=== PATIENT | male | born 1960 | race Caucasian/White ===

== ENCOUNTER → 2017-01-11 | Outpatient (REF) | payer BC ==
[~2017-01-11] MED LIST: /AUGM875TA; CIPR500T19; FLAG500T; HYDR25TA6; PRIL40CA; VICO5TAB
--- NOTE | 2017-01-11 07:42 | PFTRPT ---
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 The forced vital capacity is reduced. The FEV1 is in proportion. The obstructive index is, therefore, normal. FLOW VOLUME LOOP: The expiratory limb of the flow volume loop does suggest flow rate limitation. LUNG VOLUMES: The total lung capacity is normal. The residual volume suggests air trapping. DIFFUSION CAPACITY: The diffusion capacity is normal. HEMOGLOBIN: No hemoglobin is available for correction. AIRWAY MECHANICS: Airways resistance and conductance are normal. IMPRESSION: Suspect some degree of air trapping. Please correlate clinically. MTDD
== END ==
LOC: M CARPUL 06:49 → EDSTATUS 14:21
PROVIDERS: ATTEND Nurse Practitioner Adult Health
DX: R05 Cough (principal)

== ENCOUNTER → 2017-07-01 | Outpatient (REF) | payer BC ==
[2017-07-05 00:08] LABS: Lyme Disease IgG/IgM Antibodie <0.91 ISR (0.00-0.90); Lyme Disease IgM Ab Quantitati <0.80 index (0.00-0.79)
== END ==
LOC: M LAB REF 16:15
PROVIDERS: ATTEND Nurse Practitioner Family
DX: S70.261A Insect bite (nonvenomous), right hip, initial encounter (principal); R53.83 Other fatigue; X58.XXXA Exposure to other specified factors, initial encounter; Y92.9 Unspecified place or not applicable; Y93.9 Activity, unspecified

== ENCOUNTER → 2018-06-28 | Outpatient (REF) | payer BC ==
[2018-06-28 17:05] LABS: TESTOSTERONE 317 NG/DL (241-827)
== END ==
LOC: M LAB REF 16:08
DX: F52.21 Male erectile disorder (principal)
CPT/HCPCS: 84403

== ENCOUNTER → 2019-01-03 | Outpatient (REF) ==
--- NOTE | 2019-01-03 07:10 | PFTRPT ---
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 Forced vital capacity reduced. FEV1 in proportion. Obstructive index is, therefore, normal. Flow Volume Loop: Expiratory limb of the flow volume loop is normal. Lung Volumes: Total lung capacity normal. Residual volume is in proportion. Diffusing Capacity: Diffusing capacity, although reduced, is appropriate for alveolar volume. Hemoglobin: No hemoglobin available for correction. Airway Mechanics: Airway resistance and conductance are normal. IMPRESSION: Nonspecific flow rate limitation with diffusing capacity impairment. Please correlate clinically. MTDD
== END ==
LOC: M EMP 06:47 → EDSTATUS 07:00
PROVIDERS: ATTEND Nurse Practitioner Adult Health
DX: Z02.1 Encounter for pre-employment examination (principal)

== ENCOUNTER 2019-03-23 15:21 | Emergency (ER) | payer BC ==
[~2019-03-23] VITALS: Ht 182.9 cm; Wt 131.3 kg
[2019-03-23] MEDS ORDERED: MELO15TA28 (15:30)
[2019-03-23 16:17] LABS: BASO # 0.1 10^3/uL (0.0-0.2); BASO % 0.6 % (0.0-1.0); EOS # 0.1 10^3/uL (0.0-0.50); EOS % 1.1 % (0.0-3.0); HEMATOCRIT 45.6 % (42.0-52.0); HEMOGLOBIN 15.7 g/dl (13.5-17.5); LYMPH # 1.6 10^3/uL (1.5-4.5); LYMPH % 18.1 % (24.0-44.0); MEAN CORPUSCULAR HEMOGLOBIN 30.2 pg (27.0-33.0); MEAN CORPUSCULAR HGB CONC 34.4 g/dl (32.0-36.5); MEAN CORPUSCULAR VOLUME 87.7 fl (80.0-96.0); MONO % 10.8 % (0.0-5.0); NEUTROPHILS # 6.2 10^3/uL (1.8-7.7); NEUTROPHILS % 69.1 % (36.0-66.0); PLATELET COUNT, AUTOMATED 287 10^3/uL (150-450)
[2019-03-23 16:38] LABS: ALBUMIN 3.9 GM/DL (3.2-5.2); ALT/SGPT 28 U/L (12-78); BILIRUBIN,DIRECT < 0.1 MG/DL (0.0-0.2); BILIRUBIN,TOTAL 0.5 MG/DL (0.2-1.0); LIPASE 111 U/L (73-393); TOTAL PROTEIN 7.4 GM/DL (6.4-8.2)
[2019-03-23] MEDS ORDERED: ISOVUE-370 76% 100ML VIAL (Q9967) As Ordered ONE (16:41)
--- NOTE | 2019-03-23 18:03 | REP ---
CT ABDOMEN AND PELVIS WITH IV CONTRAST: TECHNIQUE: Axial contrast enhanced images from the lung bases to the pubic symphysis using 100 mL Isovue 370 intravenous contrast material with multiplanar reformations. Visualized lung bases demonstrate mild bibasilar parenchymal fibrotic changes with right sided pleural thickening. Liver and gallbladder appear unremarkable. I do not see evidence of biliary dilatation. The spleen, adrenals and pancreas demonstrate no mass. There does appear to be some degree of thickening of the left adrenal gland. The kidneys are unremarkable with no hydronephrosis. There is mild atherosclerotic calcification of the abdominal aorta without aneurysm. There is no adenopathy. There is no free air or free fluid. No bowel wall thickening is seen. There is sigmoid diverticulosis. Suture line is seen in the sigmoid colon. There is no evidence of acute diverticulitis. No pelvic mass is seen. Urinary bladder is mildly distended and grossly unremarkable. There is no evidence of appendicitis. There are degenerative changes of the spine. IMPRESSION: No acute abnormalities. Mild sigmoid diverticulosis. No acute diverticulitis. No free air or free fluid. No appendicitis. Electronically Signed by Khris Tinajero MD 03/25/2019 11:12 P
[2019-03-23 18:52] VITALS: BP 164/86
== END 2019-03-23 18:54 | disposition home or self-care (01) ==
LOC: M ED 15:21
DX: K57.90 Diverticulosis of intestine, part unspecified, without perforation or abscess without bleeding (principal); R14.0 Abdominal distension (gaseous); I25.10 Atherosclerotic heart disease of native coronary artery without angina pectoris; K21.9 Gastro-esophageal reflux disease without esophagitis; Z79.899 Other long term (current) drug therapy; Z88.0 Allergy status to penicillin; Z88.5 Allergy status to narcotic agent; Z88.8 Allergy status to other drugs, medicaments and biological substances
CPT/HCPCS: 74177; 80047; 80076; 81001; 83690; 85025; 93041; 99284; Q9967

== ENCOUNTER 2019-04-24 12:46 | Day surgery (SDC) | payer BC ==
[~2019-04-24] VITALS: Ht 182.9 cm; Wt 126.1 kg
[2019-04-24] MEDS: NS 1,000 ML IV ONE (06:00)
[~2019-04-24 12:46] MED LIST changes: +CVS1CAP2 PO; +MELO15TA28; +OMEP-221 PO
[2019-04-24] MEDS ORDERED: LIDOCAINE 2% INJ 100 MG/5 ML SDV (FOR ANES.) As Ordered ONE (13:49)
[2019-04-24] MEDS ORDERED: PROPOFOL 200 MG/20 ML VIAL As Ordered ONE (13:49)
--- NOTE | 2019-04-24 15:25 | ROOR ---
Patient Name: Gabo Vang Procedure Date: 04/24/2019 2:41 PM Date of : 1960 Age: 58 Room: [facility] Gender: Male Note Status: Finalized Procedure: Colonoscopy Indications: Abdominal pain in the left lower quadrant, Constipation Providers: Jimenez Novoa MD Referring MD: Darek Martel MD Requesting Provider: Medicines: Monitored Anesthesia Care Complications: No immediate complications. Procedure: Pre-Anesthesia Assessment: - Prior to the procedure, a History and Physical was performed, and patient medications and allergies were reviewed. The patient is competent. The risks and benefits of the procedure and the sedation options and risks were discussed with the patient. All questions were answered and informed consent was obtained. Patient identification and proposed procedure were verified by the physician, the nurse and the anesthesiologist in the procedure room. Mental Status Examination: alert and oriented. CV Examination: regular rate and rhythm. Prophylactic Antibiotics: The patient does not require prophylactic antibiotics. Prior Anticoagulants: The patient has taken no previous anticoagulant or antiplatelet agents. ASA Grade Assessment: III - A patient with severe systemic disease. After reviewing the risks and benefits, the patient was deemed in satisfactory condition to undergo the procedure. The anesthesia plan was to use monitored anesthesia care (MAC). Immediately prior to administration of medications, the patient was re-assessed for adequacy to receive sedatives. The heart rate, respiratory rate, oxygen saturations, blood pressure, adequacy of pulmonary ventilation, and response to care were monitored throughout the procedure. The physical status of the patient was re-assessed after the procedure. The was introduced through the anus and advanced to the cecum, identified by appendiceal orifice and ileocecal valve. The colonoscopy was performed without difficulty. The patient tolerated the procedure well. The quality of the bowel preparation was good. Findings: The perianal and digital rectal examinations were normal. Two sessile polyps were found in the proximal ascending colon. The polyps were 4 to 7 mm in size. These polyps were removed with a hot snare. Resection and retrieval were complete. Multiple medium-mouthed diverticula were found in the sigmoid colon and distal descending colon. There was evidence of a prior end-to-end colo-rectal anastomosis at 20 cm proximal to the anus. This was characterized by healthy appearing mucosa. Impression: - Two 4 to 7 mm polyps in the proximal ascending colon, removed with a hot snare. Resected and retrieved. - Diverticulosis in the sigmoid colon and in the distal descending colon. - End-to-end colo-rectal anastomosis, characterized by healthy appearing mucosa. Recommendation: - Discharge patient to home. - Resume previous diet. - Continue present medications. - Await pathology results. - If the pathology report reveals adenomatous tissue, then repeat the colonoscopy for surveillance in 5 years. Jimenez Novoa MD Jimenez Novoa MD 04/24/2019 3:25:00 PM Electronically signed by Jimenez Novoa MD Number of Addenda: 0 Note Initiated On: 04/24/2019 2:41 PM Estimated Blood Loss: Estimated blood loss: none.
--- NOTE | 2019-04-24 15:31 | ROOR ---
Patient Name: Gabo Vang Procedure Date: 04/24/2019 2:37 PM Date of : 1960 Age: 58 Room: [facility] Gender: Male Note Status: Finalized Procedure: Upper GI endoscopy Indications: Epigastric abdominal pain, Suspected esophageal reflux Providers: Jimenez Novoa MD Referring MD: Darek Martel MD Requesting Provider: Medicines: Monitored Anesthesia Care Complications: No immediate complications. Procedure: Pre-Anesthesia Assessment: - Prior to the procedure, a History and Physical was performed, and patient medications and allergies were reviewed. The patient is competent. The risks and benefits of the procedure and the sedation options and risks were discussed with the patient. All questions were answered and informed consent was obtained. Patient identification and proposed procedure were verified by the physician, the nurse and the anesthesiologist in the procedure room. Mental Status Examination: alert and oriented. CV Examination: regular rate and rhythm. Prophylactic Antibiotics: The patient does not require prophylactic antibiotics. Prior Anticoagulants: The patient has taken no previous anticoagulant or antiplatelet agents. ASA Grade Assessment: III - A patient with severe systemic disease. After reviewing the risks and benefits, the patient was deemed in satisfactory condition to undergo the procedure. The anesthesia plan was to use monitored anesthesia care (MAC). Immediately prior to administration of medications, the patient was re-assessed for adequacy to receive sedatives. The heart rate, respiratory rate, oxygen saturations, blood pressure, adequacy of pulmonary ventilation, and response to care were monitored throughout the procedure. The physical status of the patient was re-assessed after the procedure. The Endoscope was introduced through the mouth, and advanced to the second part of duodenum. The upper GI endoscopy was accomplished without difficulty. The patient tolerated the procedure well. Findings: The examined esophagus was normal. The entire examined stomach was normal. The first portion of the duodenum and second portion of the duodenum were normal. Biopsies were taken with a cold forceps for Helicobacter pylori testing. Estimated blood loss was minimal. Impression: - Normal esophagus. - Normal stomach. - Normal first portion of the duodenum and second portion of the duodenum. Biopsied. Recommendation: - Discharge patient to home. - Resume previous diet. - Continue present medications. - Await pathology results. Jimenez Novoa MD Jimenez Novoa MD 04/24/2019 3:31:06 PM Electronically signed by Jimenez Novoa MD Number of Addenda: 0 Note Initiated On: 04/24/2019 2:37 PM Estimated Blood Loss: Estimated blood loss was minimal.
[2019-04-24 15:48] VITALS: BP 178/97
== END 2019-04-24 15:57 | disposition home or self-care (01) ==
LOC: M OPP 12:46
PROVIDERS: ATTEND Surgery
DX: D12.2 Benign neoplasm of ascending colon (principal); Z98.0 Intestinal bypass and anastomosis status; K57.30 Diverticulosis of large intestine without perforation or abscess without bleeding; R10.32 Left lower quadrant pain; K59.00 Constipation, unspecified; R10.13 Epigastric pain; Z79.899 Other long term (current) drug therapy; Z88.0 Allergy status to penicillin; Z88.5 Allergy status to narcotic agent; Z88.8 Allergy status to other drugs, medicaments and biological substances

== ENCOUNTER → 2019-05-08 | Outpatient (CLI) | payer BC ==
--- NOTE | 2019-05-08 08:32 | REP ---
Abdominal right upper quadrant ultrasound for right upper quadrant pain: There is no cholelithiasis. The gallbladder is incompletely distended. The gallbladder wall is thickened measuring up to 4.8 mm, however, this could be artifact from under distension. There is no pericholecystic fluid. There is no intrahepatic or extrahepatic biliary duct dilatation. The common biliary duct measures 4.3 mm in diameter. The hepatic parenchyma is diffusely echogenic, compatible with hepato steatosis/hepatocellular disease. There are no hepatic masses. The visualized portions of the pancreas are unremarkable. The right kidney measures 12.2 x 2.4 x 6.0 cm and is normal size. There is no right renal calculus, hydronephrosis, solid mass or cystic mass. There is no right upper quadrant ascites. Impression: Incomplete gallbladder distension, gallbladder wall is thickened, likely artifact from under distension. No cholelithiasis or biliary duct dilatation. Hepato steatosis. No ascites. Electronically Signed by Khris Kramer MD 05/08/2019 08:25 A
== END ==
LOC: M RAD 06:12
PROVIDERS: ATTEND Surgery
DX: R10.11 Right upper quadrant pain (principal); K76.0 Fatty (change of) liver, not elsewhere classified

== ENCOUNTER → 2019-05-31 | Outpatient (REF) | payer BC ==
[2019-05-31 12:45] LABS: BASO # 0.1 10^3/uL (0.0-0.2); BASO % 0.9 % (0.0-1.0); EOS # 0.2 10^3/uL (0.0-0.5); EOS % 2.3 % (0.0-3.0); HEMATOCRIT 44.6 % (42.0-52.0); LYMPH # 1.6 10^3/uL (1.5-5.0); LYMPH % 23.3 % (24.0-44.0); MEAN CORPUSCULAR HEMOGLOBIN 29.4 pg (27.0-33.0); MEAN CORPUSCULAR HGB CONC 33.6 g/dl (32.0-36.5); MEAN CORPUSCULAR VOLUME 87.5 fl (80.0-96.0); MONO # 0.8 10^3/uL (0.0-0.8); NEUTROPHILS # 4.2 10^3/uL (1.5-8.5); NEUTROPHILS % 62.1 % (36.0-66.0); PLATELET COUNT, AUTOMATED 296 10^3/uL (150-450); WHITE BLOOD COUNT 6.8 10^3/uL (4.0-10.0)
[2019-05-31 13:03] LABS: ERYTHROCYTE SEDIMENTATION RATE 6 mm/hr (0-20)
[2019-05-31 13:10] LABS: ALBUMIN 3.8 GM/DL (3.2-5.2); ALT/SGPT 32 U/L (12-78); BILIRUBIN,TOTAL 0.4 MG/DL (0.2-1.0); BLOOD UREA NITROGEN 11 MG/DL (7-18); C REACTIVE PROTEIN QUANTITATIV 0.52 MG/DL (0.00-0.30); CALCIUM LEVEL 9.5 MG/DL (8.8-10.2); CARBON DIOXIDE LEVEL 28 MEQ/L (21-32); CHLORIDE LEVEL 106 MEQ/L (98-107); CREATININE FOR GFR 0.78 MG/DL (0.70-1.30); GLOMERULAR FILTRATION RATE > 60.0 (>49); GLUCOSE, FASTING 99 MG/DL (70-100); POTASSIUM SERUM 4.1 MEQ/L (3.5-5.1); SODIUM LEVEL 140 MEQ/L (136-145); TOTAL PROTEIN 7.2 GM/DL (6.4-8.2)
[2019-06-02 00:11] LABS: Lyme Disease IgG/IgM Antibodie <0.91 ISR (0.00-0.90); Lyme Disease IgM Ab Quantitati <0.80 index (0.00-0.79)
== END ==
LOC: M LABDRWAD 12:24
PROVIDERS: ATTEND Physician Assistant
DX: R53.83 Other fatigue (principal); R51 Headache; S20.462A Insect bite (nonvenomous) of left back wall of thorax, initial encounter

== ENCOUNTER → 2019-12-12 | Outpatient (REF) ==
--- NOTE | 2019-12-12 17:56 | REP ---
CHEST X-RAY: TWO VIEWS. HISTORY: Employee health. Comparison chest x-ray: December 20, 2013 FINDINGS: The lungs are well inflated and free of infiltrate. Pleural angles are sharp. Heart size is normal. Pulmonary vasculature is not increased. There are mild degenerative changes in the thoracic spine. No significant bony abnormality. IMPRESSION: No active disease. Electronically Signed by Deon Resendiz MD 12/12/2019 07:39 P
== END ==
LOC: M RAD 09:31
PROVIDERS: ATTEND Nurse Practitioner Adult Health
DX: Z02.89 Encounter for other administrative examinations (principal)

== ENCOUNTER → 2019-12-26 | Outpatient (REF) ==
--- NOTE | 2019-12-26 11:25 | PFTRPT ---
Site: [facility], [address] [place] [address], [id number] ID: [id number] Name: ARIES PALACIO Visit Date: 12/26/2019 Second ID: [id number] Referring Doctor: Wilma Ibrahim Reviewing Doctor: Vicente Ch MD Grain Sampler: Aure Gomez Age: 59 : 1960 Sex: Male Race: Height: 72.00 Inches Weight: 300.00 Lbs BSA: 2.53 Order IDs: [id number] Requested Test(s): <RESP-PFT.DLCO> Diagnosis: EMPLOYEE HE[employer] test meet the ATS standards for acceptability and repeatability. Review Status: Not Reviewed Pre-Bronch Post-Bronch Pred Actual %Pred Actual %Chng SPIROMETRY FVC (L) 5.08 4.61 90 FEV1 (L) 3.83 3.23 84 FEV1/FVC (%) 75 70 93 FEF 25% (L/sec) 8.77 7.22 82 FEF 50% (L/sec) 5.37 3.05 56 FEF 75% (L/sec) 1.70 0.54 31 FEF 25-75% (L/sec) 3.11 1.92 61 FEF Max (L/sec) 9.60 8.82 91 FIVC (L) 4.58 FIF 50% (L/sec) 4.69 6.93 147 FIF Max (L/sec) 7.52 MVV (L/min) 146 163 111 Expiratory Time (sec) 11.10 Back Extrap Vol (L) 0.17 Time To FEFmax (sec) 0.130 LUNG VOLUMES SVC (L) 5.03 4.67 92 IC (L) 3.51 2.07 59 ERV (L) 1.52 2.60 170 TGV (L) 3.89 4.51 116 RV (Pleth) (L) 2.37 1.92 80 TLC (Pleth) (L) 7.40 6.59 88 RV/TLC (Pleth) (%) 33 29 88 DIFFUSION DLCOunc (ml/min/mmHg) 29.03 28.60 98 DLCOcor (ml/min/mmHg) 29.03 27.99 96 DL/VA (ml/min/mmHg/L) 3.92 4.32 110 VA (L) 7.40 6.49 87 BHT (sec) 11.26 IVC (L) 4.36 TLC (SB) (L) 6.64 AIRWAYS RESISTANCE Raw (cmH2O/L/s) 1.45 0.63 43 Gaw (L/s/cmH2O) 1.03 1.58 153 sRaw (cmH2O*s) 4.76 2.98 62 sGaw (1/cmH2O*s) 0.20 0.34 168 BLOOD GASES Hgb (gm/dL) 15.4
== END ==
LOC: M CARPUL 10:51 → EDSTATUS 11:00
PROVIDERS: ATTEND Nurse Practitioner Adult Health
DX: Z00.00 Encounter for general adult medical examination without abnormal findings (principal)

== ENCOUNTER 2020-07-25 01:50 | Emergency (ER) | payer BC ==
[~2020-07-25] VITALS: Ht 182.9 cm; Wt 136.5 kg
[2020-07-25] MEDS ORDERED: LABETALOL 100MG/20ML VIAL IV STA (02:16)
[2020-07-25 02:36] LABS: BASO # 0.1 10^3/uL (0.0-0.2); BASO % 0.7 % (0.0-1.0); EOS # 0.5 10^3/uL (0.0-0.5); EOS % 6.3 % (0.0-3.0); HEMATOCRIT 43.7 % (42.0-52.0); HEMOGLOBIN 14.6 g/dl (13.5-17.5); LYMPH # 1.7 10^3/uL (1.5-5.0); LYMPH % 23.7 % (24.0-44.0); MEAN CORPUSCULAR HEMOGLOBIN 28.9 pg (27.0-33.0); MEAN CORPUSCULAR HGB CONC 33.4 g/dl (32.0-36.5); MEAN CORPUSCULAR VOLUME 86.4 fl (80.0-96.0); MONO # 0.8 10^3/uL (0.0-0.8); MONO % 10.9 % (0.0-5.0); NEUTROPHILS # 4.1 10^3/uL (1.5-8.5); NEUTROPHILS % 58.1 % (36.0-66.0); PLATELET COUNT, AUTOMATED 251 10^3/uL (150-450); RED BLOOD COUNT 5.06 10^6/uL (4.30-6.10); WHITE BLOOD COUNT 7.1 10^3/uL (4.0-10.0)
[2020-07-25 03:10] LABS: ALBUMIN 3.6 GM/DL (3.2-5.2); ALT/SGPT 25 U/L (12-78); BILIRUBIN,DIRECT 0.1 MG/DL (0.0-0.2); BILIRUBIN,TOTAL 0.4 MG/DL (0.2-1.0); BLOOD UREA NITROGEN 12 MG/DL (7-18); CALCIUM LEVEL 8.7 MG/DL (8.8-10.2); CARBON DIOXIDE LEVEL 26 MEQ/L (21-32); CHLORIDE LEVEL 106 MEQ/L (98-107); CPK CREATINE PHOSPHOKINASE 90 U/L (39-308); CREATININE FOR GFR 0.82 MG/DL (0.70-1.30); GLOMERULAR FILTRATION RATE > 60.0 (>49); GLUCOSE, FASTING 114 MG/DL (70-100); MB/CK RELATIVE INDEX 1.11 (< OR =4); NT-PRO BNP 131 PG/ML (<125); POTASSIUM SERUM 3.7 MEQ/L (3.5-5.1); SODIUM LEVEL 141 MEQ/L (136-145); TOTAL PROTEIN 7.1 GM/DL (6.4-8.2); TROPONIN I < 0.02 NG/ML (< 0.10)
--- NOTE | 2020-07-25 03:13 | REPVR ---
PROCEDURE INFORMATION: Exam: XR Chest, 1 View Exam date and time: 07/25/2020 2:37 AM Age: 59 years old Clinical indication: Chest pain TECHNIQUE: Imaging protocol: XR of the chest Views: 1 view. COMPARISON: CR Chest, 2 view PA, Lat 12/20/2013 7:10 PM FINDINGS: Lungs: Unremarkable. No consolidation. No focal infiltrates. Pleural space: Interval clearing of the right costophrenic sulcus since the prior study. Heart/Mediastinum: The heart and mediastinum are unchanged. Bones/joints: Unremarkable. Soft tissues: There are moderately generous overlying soft tissues. Other findings: Slightly decreased inflation since the prior study. IMPRESSION: Essentially negative chest with decreased inflation since 12/20/2013. There has been interval clearing of the right costophrenic sulcus as well. Electronically signed by: Gilberto Shore On 07/25/2020 03:14:05 AM
[2020-07-25] MEDS ORDERED: LABETALOL 100 MG TAB PO ONE (03:30)
[2020-07-25] MEDS ORDERED: hydrALAZINE 20MG/ML 1ML VIAL (J0360 PER 20MG) IV ONE (03:30)
[2020-07-25] MEDS ORDERED: FUROSEMIDE 40MG/4ML VIAL (J1940) IV ONE (05:45)
[2020-07-25] MEDS ORDERED: VALS1TAB68 PO (06:59)
[2020-07-25] MEDS ORDERED: CHLO125TA PO (06:59)
[2020-07-25] MEDS ORDERED: VALSARTAN 80 MG TAB (DIOVAN) PO ONE (07:00)
[2020-07-25] MEDS ORDERED: CHLORTHALIDONE 12.5MG PER 1/2 TABLET PO ONE (07:00)
[2020-07-25 07:34] VITALS: BP 185/108
[2020-07-25 07:36] VITALS: BP 180/88
--- NOTE | 2020-07-25 07:44 | ECGEPIP ---
[facility] - ED Test Date: 2020-07-25 Pat Name: ARIES PALACIO Department: Room: - Gender: Male Inpatient Services Rn: nobles : 1960 Requested By: MARCOS Correa Order Number: [id number] Reading MD: Lu Mooney Measurements Intervals [place] Rate: 74 P: 27 SC: 189 QRS: 8 QRSD: 71 T: 3 QT: 347 QTc: 386 Interpretive Statements SINUS RHYTHM No prior Electronically Signed on 07-25-2020 7:44:24 EST by Lu Mooney
== END 2020-07-25 07:50 | disposition home or self-care (01) ==
LOC: M ED 01:50
DX: I10 Essential (primary) hypertension (principal); I25.10 Atherosclerotic heart disease of native coronary artery without angina pectoris; K21.9 Gastro-esophageal reflux disease without esophagitis; Z88.6 Allergy status to analgesic agent; Z88.8 Allergy status to other drugs, medicaments and biological substances; Z79.899 Other long term (current) drug therapy
CPT/HCPCS: 36415; 71045; 80048; 80076; 82550; 82553; 83880; 84443; 84484; 85025; 93005; 93041; 94760; 96374; 96375; 99285; J0360; J1940

== ENCOUNTER → 2020-08-28 | Outpatient (CLI) | payer BC ==
[~2020-08-28] MED LIST changes: +CHLO125TA PO; +VALS1TAB68 PO
[2020-08-28 10:38] LABS: BLOOD UREA NITROGEN 15 MG/DL (7-18); CALCIUM LEVEL 9.1 MG/DL (8.8-10.2); CARBON DIOXIDE LEVEL 29 MEQ/L (21-32); CHLORIDE LEVEL 106 MEQ/L (98-107); CREATININE FOR GFR 0.87 MG/DL (0.70-1.30); GLOMERULAR FILTRATION RATE > 60.0 (>49); GLUCOSE, FASTING 108 MG/DL (70-100); MAGNESIUM LEVEL 1.9 MG/DL (1.8-2.4); POTASSIUM SERUM 3.7 MEQ/L (3.5-5.1); SODIUM LEVEL 141 MEQ/L (136-145)
--- NOTE | 2020-08-28 10:48 | REP ---
INDICATION: HTN PT HAVING LABS FIRST COMPARISON: None TECHNIQUE: Real time porter scale ultrasound examination using curved array transducer followed by color Doppler evaluation of the renal vasculature. FINDINGS: The bilateral kidneys are normal in appearance. Right kidney measures 11.2 x 6.7 x 5.8 cm. Left kidney measures 11.9 x 6.8 x 5.6 cm. Bladder is under distended. Color Doppler evaluation is severely limited due to body habitus and interposed bowel gas. The main renal arteries are not identifiable. RIGHT KIDNEY Renal arterial velocity: -- centimeters/second Renal-aortic ratio: -- Intrarenal resistive indices: 0.60-0.70 Intrarenal acceleration times: 0.025-0.031 LEFT KIDNEY Renal arterial velocity: -- centimeters/second Renal-aortic ratio: -- Intrarenal resistive indices: 0.59-0.74 Intrarenal acceleration times: 0.020-0.044 IMPRESSION: 1. Normal appearance of bilateral kidneys. No hydronephrosis.. 2. Relatively limited examination. No obvious indirect evidence for renal arterial stenosis based on intrarenal vascular findings. Consider MRA or CTA for further investigation if necessary. <Electronically signed by Gabriel Hoffmann > 08/28/20 [id number]
[2020-09-06 01:06] LABS: METANEPHRINE PLASMA 49.6 pg/mL (0.0-88.0)
== END ==
LOC: M LAB 08:45
PROVIDERS: ATTEND Internal Medicine Cardiovascular Disease
DX: I10 Essential (primary) hypertension (principal)

== ENCOUNTER → 2020-08-29 | Outpatient (REF) | payer BC ==
[2020-08-30 11:02] LABS: CREATININE, URINE 61.9 MG/DL; MALB URINE SIEMENS < 5.0 MG/L
== END ==
LOC: M LAB REF 23:00
PROVIDERS: ATTEND Internal Medicine Cardiovascular Disease
DX: I10 Essential (primary) hypertension (principal)

== ENCOUNTER → 2020-12-22 | Outpatient (REF) ==
--- NOTE | 2020-12-22 11:45 | PFTRPT ---
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 Forced vital capacity is reduced. FEV1 is in proportion. Obstructive index is therefore normal. Expiratory limit of the flow-volume loop does suggest some nonspecific flow rate limitation. Total lung capacity is normal. Residual volume is in proportion. Diffusing capacity is normal. No hemoglobin available for correction. Airway resistance and conductance are normal. IMPRESSION: Nonspecific flow rate limitation will require clinical correlation. MTDD
== END ==
LOC: EDSTATUS 11:00 → M CARPUL 11:19
PROVIDERS: ATTEND Nurse Practitioner Adult Health
DX: Z20.822 Contact with and (suspected) exposure to COVID-19 (principal)

== ENCOUNTER → 2021-04-17 | Outpatient (CLI) | payer BC ==
[~2021-04-17] MED LIST changes: +ISOVUE-300 61% 50ML VIAL As Ordered ONE; +LIDOCAINE 1% MDV 20ML VIAL As Ordered ONE; +methylPREDNISolone SUSP 40MG/ML 1ML VIAL (DEPO MEDROL) As Ordered ONE
--- NOTE | 2021-04-17 17:01 | REP ---
INDICATION: NAIN OA OF HIP. COMPARISON: None TECHNIQUE: The procedure was performed by WAGNER Hayden, under the direct supervision of Dr. Tinajero. The benefits and risks of the procedure were explained to the patient, and an informed consent was obtained. Directly prior to the start of the procedure, a formal time-out was completed in the procedure room. The left femoral neck joint space was localized using fluoroscopic guidance. The skin was prepped and draped in a sterile fashion. Approximately 5 mL of 1% Lidocaine 10 mg/ml was used as a local anesthetic. Using fluoroscopic guidance, a #22 gauge spinal needle was inserted and advanced into the left femoral neck joint space. Approximately 1 mL of Isovue 300 was injected to verify placement. Seven mL of a solution containing 5 mL 1% lidocaine 10 mg/ml and 2 mL Depo-Medrol 40 milligrams/milliliter was injected into the joint space. The needle was removed and hemostasis was achieved. FINDINGS: The patient tolerated the procedure well and there were no immediate complications. IMPRESSION: 1. Fluoroscopically guided left hip intra-articular pain injection. 0.1 minutes of fluoroscopy time was utilized for this procedure. Some fluoroscopic images are performed with last image hold technology. These images require no additional radiation. <Electronically signed by Denice Cates > 04/17/21 1304 <Electronically signed by Khris Tinajero > 04/17/21 [id number]
== END ==
LOC: M RADPRO 11:51
PROVIDERS: ATTEND Physician Assistant
DX: M16.0 Bilateral primary osteoarthritis of hip (principal)
CPT/HCPCS: 20610; 77002; J1030; Q9967

== ENCOUNTER → 2021-06-09 | Outpatient (CLI) | payer BC ==
--- NOTE | 2021-06-10 17:22 | REP ---
INDICATION: OSTEOARTHRITIS RIGHT HIP. COMPARISON: None TECHNIQUE: The procedure was performed by WAGNER Caldera, under the direct supervision of Dr. Tinajero. The benefits and risks of the procedure were explained to the patient, and an informed consent was obtained. Directly prior to the start of the procedure, a formal time-out was completed in the procedure room. The right hip joint space was localized using fluoroscopic guidance. The skin was prepped and draped in a sterile fashion. Approximately 5 mL of 1% Lidocaine 10 mg/ml was used as a local anesthetic. Using fluoroscopic guidance, a #22 gauge spinal needle was inserted and advanced into the right hip joint space. Approximately 3 mL of Isovue 300 was injected to verify placement. Seven mL of a solution containing 5 mL 1% lidocaine 10 mg/ml and 2 mL Depo-Medrol 40 mg/mL was injected into the joint space. The needle was removed and hemostasis was achieved. FINDINGS: The patient tolerated the procedure well and there were no immediate complications. IMPRESSION: 1. Technically successful right hip arthrogram. 0.1 minutes of fluoroscopy time was utilized for this procedure. Some fluoroscopic images are performed with last image hold technology. These images require no additional radiation. <Electronically signed by January Ferrer > 06/09/21 1531 <Electronically signed by Khris Tinajero > 06/10/21 1325
== END ==
LOC: M RADPRO 14:10
PROVIDERS: ATTEND Physician Assistant
DX: M16.0 Bilateral primary osteoarthritis of hip (principal)
CPT/HCPCS: 20610; 77002; J1030; Q9967

== ENCOUNTER → 2021-08-04 | Outpatient (REF) | payer BC ==
[~2021-08-04] MED LIST changes: -ISOVUE-300 61% 50ML VIAL As Ordered ONE; -LIDOCAINE 1% MDV 20ML VIAL As Ordered ONE; -methylPREDNISolone SUSP 40MG/ML 1ML VIAL (DEPO MEDROL) As Ordered ONE
== END ==
LOC: M LAB REF 11:09
PROVIDERS: ATTEND Family Medicine
DX: R30.0 Dysuria (principal)

== ENCOUNTER → 2021-08-07 | Outpatient (CLI) | payer BC | LOC: M RAD 11:20 | PROVIDERS: ATTEND Physician Assistant Surgical | DX: M16.11 Unilateral primary osteoarthritis, right hip (principal) ==

== ENCOUNTER → 2021-08-28 | Outpatient (CLI) | payer BC ==
[~2021-08-28] MED LIST changes: -OMEP-221 PO; +OMEP40CA5 PO
== END ==
LOC: M RAD 09:43
PROVIDERS: ATTEND Family Medicine
DX: R30.0 Dysuria (principal)

== ENCOUNTER → 2021-12-23 | Outpatient (REF) | LOC: EDSTATUS 09:00 → M CARPUL 10:40 | PROVIDERS: ATTEND Nurse Practitioner Adult Health | DX: Z02.1 Encounter for pre-employment examination (principal) ==

== ENCOUNTER 2022-12-23 09:14 | Day surgery (SDC) | payer BC ==
[~2022-12-23] VITALS: Ht 180.3 cm; Wt 125.6 kg
[~2022-12-23 09:14] MED LIST changes: +AMLO1TAB25 PO; +CARV3.12 PO; +NS 1,000 ML IV ONE; +TAMS1CAP17 PO
[2022-12-23] MEDS ORDERED: LIDOCAINE 2% 100MG/5ML SDV (FOR ANES.) As Ordered ONE (11:21)
[2022-12-23] MEDS ORDERED: propofoL 200 MG/20 ML VIAL As Ordered ONE (11:21)
[2022-12-23 12:01] VITALS: BP 142/80
== END 2022-12-23 12:09 | disposition home or self-care (01) ==
LOC: M OPP 09:14
PROVIDERS: ATTEND Surgery
DX: Z12.11 Encounter for screening for malignant neoplasm of colon (principal); Z86.010 Personal history of colon polyps; Z80.0 Family history of malignant neoplasm of digestive organs; K57.30 Diverticulosis of large intestine without perforation or abscess without bleeding; G47.33 Obstructive sleep apnea (adult) (pediatric); Z99.89 Dependence on other enabling machines and devices; Z79.899 Other long term (current) drug therapy; Z88.5 Allergy status to narcotic agent; Z88.8 Allergy status to other drugs, medicaments and biological substances

== ENCOUNTER → 2023-01-12 | Outpatient (REF) ==
[~2023-01-12] MED LIST changes: -NS 1,000 ML IV ONE
== END ==
LOC: M CARPUL 07:32
PROVIDERS: ATTEND Nurse Practitioner Adult Health
DX: Z02.89 Encounter for other administrative examinations (principal)

== ENCOUNTER → 2023-07-01 | Outpatient (REF) | LOC: M EMP 16:59 | PROVIDERS: ATTEND Family Medicine | DX: Z11.52 Encounter for screening for COVID-19 (principal) ==

== ENCOUNTER → 2024-01-23 | Outpatient (REF) | LOC: M CARPUL 13:15 | PROVIDERS: ATTEND Nurse Practitioner Adult Health | DX: Z02.1 Encounter for pre-employment examination (principal) ==

== ENCOUNTER 2024-12-14 10:25 | Emergency (ER) | payer OTHER, BC ==
[~2024-12-14] VITALS: Ht 180.3 cm; Wt 137.2 kg
[2024-12-14 11:53] LABS: BASO % 0.4 % (0.0-1.0); EOS # 0.2 10^3/uL (0.0-0.5); EOS % 1.7 % (0.0-3.0); HEMATOCRIT 41.9 % (42.0-52.0); HEMOGLOBIN 14.3 g/dl (13.5-17.5); LYMPH # 0.8 10^3/uL (1.5-5.0); LYMPH % 7.5 % (24.0-44.0); MEAN CORPUSCULAR HEMOGLOBIN 29.9 pg (27.0-33.0); MEAN CORPUSCULAR HGB CONC 34.1 g/dl (32.0-36.5); MEAN CORPUSCULAR VOLUME 87.5 fl (80.0-96.0); MONO # 0.9 10^3/uL (0.0-0.8); MONO % 8.6 % (2.0-8.0); NEUTROPHILS # 8.8 10^3/uL (1.5-8.5); NEUTROPHILS % 81.2 % (36.0-66.0); PLATELET COUNT, AUTOMATED 260 10^3/uL (150-450); RED BLOOD COUNT 4.79 10^6/uL (4.30-6.10); WHITE BLOOD COUNT 10.9 10^3/uL (4.0-10.0)
[2024-12-14 12:20] LABS: BLOOD UREA NITROGEN 17 MG/DL (9-23); CALCIUM LEVEL 9.3 MG/DL (8.3-10.6); CARBON DIOXIDE LEVEL 26 MMOL/L (20-31); CHLORIDE LEVEL 103 MMOL/L (98-107); CREATININE FOR GFR 0.69 MG/DL (0.70-1.30); GLOMERULAR FILTRATION RATE > 90.0 (>49); GLUCOSE, FASTING 113 MG/DL (74-106); POTASSIUM SERUM 3.7 MMOL/L (3.5-5.1); SODIUM LEVEL 140 MMOL/L (136-145)
[2024-12-14] MEDS ORDERED: ISOVUE-370 76% 100ML VIAL As Ordered ONE (14:13)
[2024-12-14] MEDS: fentaNYL 100 MCG/2 ML INJECTION IV ONE (14:35)
[2024-12-14] MEDS ORDERED: TRAM50TA2 PO (17:03)
[2024-12-14] MEDS ORDERED: LIDO1ADH93 TOP (17:10)
[2024-12-14 17:19] VITALS: BP 143/66; TEMP 97.4; O2SAT 94
== END 2024-12-14 17:30 | disposition home or self-care (01) ==
LOC: M ED 10:25
DX: S22.31XA Fracture of one rib, right side, initial encounter for closed fracture (principal); M24.812 Other specific joint derangements of left shoulder, not elsewhere classified; M25.712 Osteophyte, left shoulder; V49.40XA Driver injured in collision with unspecified motor vehicles in traffic accident, initial encounter; K21.9 Gastro-esophageal reflux disease without esophagitis; I10 Essential (primary) hypertension; K57.30 Diverticulosis of large intestine without perforation or abscess without bleeding; Z79.899 Other long term (current) drug therapy; Y92.410 Unspecified street and highway as the place of occurrence of the external cause; Y93.89 Activity, other specified; Y99.9 Unspecified external cause status
CPT/HCPCS: 71101; 71275; 73030; 74174; 80047; 80048; 85025; 96374; 99284; J3010; Q9967

== ENCOUNTER → 2025-02-20 | Outpatient (REF) ==
[~2025-02-20] MED LIST changes: +LIDO1ADH93 TOP; +TRAM50TA2 PO
== END ==
LOC: M CARPUL 07:56
PROVIDERS: ATTEND Family Medicine
DX: Z02.89 Encounter for other administrative examinations (principal)

== ENCOUNTER → 2025-02-28 | Outpatient (REF) | payer BC, OTHER ==
[2025-02-28 14:16] LABS: C REACTIVE PROTEIN QUANTITATIV 0.58 MG/DL (<1.0)
[2025-02-28 14:18] LABS: RHEUMATOID FACTOR QUANT < 3.5 IU/ML (<14)
[2025-02-28 14:21] LABS: BASOPHILS 4 % (0-1); EOSINOPHILS 1 % (0-3); LYMPHOCYTES 25 % (16-44); METAMYELOCYTES 2 % (0-0); MONOCYTES 5 % (0-5); NEUTROPHILS 60 % (28-66)
[2025-02-28 14:29] LABS: PLATELET ESTIMATE NORMAL (NORMAL)
== END ==
LOC: M LAB REF 12:15
PROVIDERS: ATTEND Family Medicine
DX: Z11.59 Encounter for screening for other viral diseases (principal); M25.50 Pain in unspecified joint

== ENCOUNTER 2025-05-06 19:25 | Observation (INO) | payer BC, OTHER ==
[~2025-05-06] VITALS: Ht 180.3 cm; Wt 140.8 kg
[2025-05-06] MEDS: IPRATROPIUM 0.5 MG/ALBUTEROL 2.5 MG INH SOL UD 3 ML NEB PRN (20:53)
[2025-05-06 22:09] LABS: BASO # 0.0 10^3/uL (0.0-0.2); BASO % 0.4 % (0.0-1.0); EOS # 0.1 10^3/uL (0.0-0.5); EOS % 0.9 % (0.0-3.0); LYMPH # 0.7 10^3/uL (1.5-5.0); LYMPH % 6.6 % (24.0-44.0); MONO # 0.3 10^3/uL (0.0-0.8); MONO % 3.1 % (2.0-8.0); NEUTROPHILS # 9.2 10^3/uL (1.5-8.5); NEUTROPHILS % 88.5 % (36.0-66.0); PLATELET COUNT, AUTOMATED 260 10^3/uL (150-450)
[2025-05-06 22:35] LABS: ALT/SGPT 30 U/L (7.0-40); AST/SGOT 30 U/L (<34); CALCIUM LEVEL 9.0 MG/DL (8.3-10.6); CARBON DIOXIDE LEVEL 26 MMOL/L (20-31); CHLORIDE LEVEL 106 MMOL/L (98-107); CREATININE FOR GFR 0.75 MG/DL (0.70-1.30); GLOMERULAR FILTRATION RATE > 90.0 (>49); POTASSIUM SERUM 4.0 MMOL/L (3.5-5.1); SODIUM LEVEL 143 MMOL/L (136-145)
[2025-05-07 00:38] VITALS: O2SAT 91
[2025-05-07 01:55] VITALS: BP 185/87
[2025-05-07] MEDS ORDERED: MOM 30 ML SUSPENSION UDC PO PRN (02:20)
[2025-05-07] MEDS ORDERED: ACETAMINOPHEN 325 MG TAB PO PRN (02:20)
[2025-05-07] MEDS ORDERED: MAALOX 30 ML SUSP *UDC PO PRN (02:20)
[2025-05-07] MEDS ORDERED: ALBUTEROL SULFATE 2.5 MG/0.5 ML INH CONCENTRATE NEB SOLN NEB PRN (07:50)
[2025-05-07] MEDS: PANTOPRAZOLE 40MG VIAL IV SCH (08:07)
[2025-05-07] MEDS: DOCUSATE SODIUM 100 MG CAPSULE PO SCH (08:07)
[2025-05-07] MEDS ORDERED: CHLO125TA PO (08:27)
[2025-05-07] MEDS ORDERED: TRAM50TA2 PO (08:27)
[2025-05-07] MEDS ORDERED: VALS1TAB68 PO (08:27)
[2025-05-07] MEDS ORDERED: VENTAER INH ×2 (08:27→11:23)
[2025-05-07] MEDS ORDERED: HOME MED LIST COMPLETE! XX SCH (08:30)
[2025-05-07] MEDS: BUDESONIDE 0.5 MG/2 ML INHALATION SUSPENSION NEB SCH (08:31)
[2025-05-07] MEDS: IPRATROPIUM 0.5 MG/ALBUTEROL 2.5 MG INH SOL UD 3 ML NEB SCH (08:31)
[2025-05-07 08:38] LABS: ALT/SGPT 27 U/L (7.0-40); AST/SGOT 22 U/L (<34); CALCIUM LEVEL 9.1 MG/DL (8.3-10.6); CARBON DIOXIDE LEVEL 26 MMOL/L (20-31); CHLORIDE LEVEL 105 MMOL/L (98-107); CREATININE FOR GFR 0.63 MG/DL (0.70-1.30); GLOMERULAR FILTRATION RATE > 90.0 (>49); POTASSIUM SERUM 3.9 MMOL/L (3.5-5.1); SODIUM LEVEL 141 MMOL/L (136-145)
[2025-05-07] MEDS: amLODIPine 10 MG TAB PO SCH (09:26)
[2025-05-07] MEDS: HEPARIN SOD 5000 UNITS/ML 1 ML VIAL/SYRINGE SC SCH (09:27)
[2025-05-07] MEDS ORDERED: PRED20TA PO (11:23)
[2025-05-07 12:05] VITALS: BP 155/60; TEMP 97.1; O2SAT 95
== END 2025-05-07 12:20 | disposition home or self-care (01) ==
LOC: M ED 19:25 → M ED INP 05-07 02:18 → INTOOBSV 05-07 02:18
PROVIDERS: ADMIT Student in an Organized Health Care Education/Training Program; ATTEND Student in an Organized Health Care Education/Training Program
DX: R09.02 Hypoxemia (principal); J69.8 Pneumonitis due to inhalation of other solids and liquids; J20.9 Acute bronchitis, unspecified; E66.01 Morbid (severe) obesity due to excess calories; G47.33 Obstructive sleep apnea (adult) (pediatric); I10 Essential (primary) hypertension; K21.9 Gastro-esophageal reflux disease without esophagitis; G43.909 Migraine, unspecified, not intractable, without status migrainosus; K57.30 Diverticulosis of large intestine without perforation or abscess without bleeding; Z79.51 Long term (current) use of inhaled steroids; Z79.899 Other long term (current) drug therapy; Z88.5 Allergy status to narcotic agent; Z88.8 Allergy status to other drugs, medicaments and biological substances
CPT/HCPCS: 36415; 71046; 80048; 80053; 80076; 83880; 84145; 85025; 87486; 87581; 87633; 87798; 93005; 94640; 94760; 96372; 96374; 96375; 96376; 99285; J2470; J2919

== ENCOUNTER 2025-05-15 08:05 | Emergency (ER) | payer BC ==
[~2025-05-15] VITALS: Ht 185.4 cm; Wt 139.6 kg
[~2025-05-15 08:05] MED LIST changes: +PRED20TA PO; +VENTAER INH
[2025-05-15 08:34] LABS: VENOUS BASE EXCESS 1.8 (-2.0-2.0); VENOUS HCO3 28.2 MMOL/L (23.0-27.0); VENOUS O2 SATURATION 92.8 % (60.0-80.0); VENOUS PARTIAL PRESSURE CO2 50.8 mmHg (38.0-50.0); VENOUS PARTIAL PRESSURE O2 66.7 mmHg (30.0-50.0); VENOUS PH 7.363 UNITS (7.330-7.430); VENOUS STANDARD HCO3 26.0 MMOL/L; VENOUS TOTAL CO2 29.8 MMOL/L (24.0-28.0)
[2025-05-15 08:41] LABS: BASO # 0.1 10^3/uL (0.0-0.2); BASO % 0.7 % (0.0-1.0); EOS # 0.5 10^3/uL (0.0-0.5); EOS % 4.9 % (0.0-3.0); LYMPH # 0.8 10^3/uL (1.5-5.0); LYMPH % 8.5 % (24.0-44.0); MONO # 0.8 10^3/uL (0.0-0.8); MONO % 8.8 % (2.0-8.0); NEUTROPHILS # 7.0 10^3/uL (1.5-8.5); NEUTROPHILS % 75.9 % (36.0-66.0); PLATELET COUNT, AUTOMATED 243 10^3/uL (150-450)
[2025-05-15 09:14] LABS: ALT/SGPT 22 U/L (7.0-40); AST/SGOT 18 U/L (<34); CALCIUM LEVEL 9.0 MG/DL (8.3-10.6); CARBON DIOXIDE LEVEL 28 MMOL/L (20-31); CHLORIDE LEVEL 101 MMOL/L (98-107); CREATININE FOR GFR 0.81 MG/DL (0.70-1.30); GLOMERULAR FILTRATION RATE > 90.0 (>49); POTASSIUM SERUM 3.9 MMOL/L (3.5-5.1); SODIUM LEVEL 141 MMOL/L (136-145)
[2025-05-15 09:16] LABS: THYROXINE (T4) 5.6 UG/DL (4.5-10.9)
[2025-05-15] MEDS ORDERED: ISOVUE-370 76% 100 ML VIAL As Ordered ONE (09:40)
[2025-05-15] MEDS: IPRATROPIUM 0.5 MG/ALBUTEROL 2.5 MG INH SOL UD 3 ML NEB ONE (09:59)
[2025-05-15] MEDS: ALBUTEROL SULFATE 2.5 MG/0.5 ML INH CONCENTRATE NEB SOLN INH ONE (10:00)
[2025-05-15 10:23] LABS: CK-MB VALUE MASS 1.2 NG/ML (<3.6)
[2025-05-15 10:28] LABS: CPK CREATINE PHOSPHOKINASE 74.0 U/L (46-171)
[2025-05-15 10:30] LABS: CK-MB VALUE MASS 1.2 NG/ML (<3.6); MB/CK RELATIVE INDEX 1.62 (< OR =4)
[2025-05-15 10:57] LABS: CPK CREATINE PHOSPHOKINASE 69 U/L (46-171); MB/CK RELATIVE INDEX 1.73 (< OR =4)
[2025-05-15 13:12] VITALS: O2SAT 91
[2025-05-15] MEDS ORDERED: HOME MED LIST COMPLETE! XX SCH (13:50)
[2025-05-15] MEDS ORDERED: PRED10TA2 PO (15:02)
[2025-05-15 15:36] VITALS: BP 136/69; TEMP 97.9; O2SAT 92
== END 2025-05-15 15:40 | disposition home or self-care (01) ==
LOC: M ED 08:05
DX: J20.9 Acute bronchitis, unspecified (principal); I10 Essential (primary) hypertension; G47.33 Obstructive sleep apnea (adult) (pediatric); F41.1 Generalized anxiety disorder; K21.9 Gastro-esophageal reflux disease without esophagitis; F17.200 Nicotine dependence, unspecified, uncomplicated; F10.10 Alcohol abuse, uncomplicated; Z88.5 Allergy status to narcotic agent; Z88.8 Allergy status to other drugs, medicaments and biological substances; Z79.52 Long term (current) use of systemic steroids; Z79.899 Other long term (current) drug therapy
CPT/HCPCS: 71045; 71275; 80048; 80076; 82550; 82553; 82803; 83880; 84145; 84436; 84443; 84484; 85025; 87040; 87070; 87077; 87205; 87486; 87581; 87633; 87798; 93005; 93041; 94640; 94760; 96374; 99285; J2919; Q9967

== ENCOUNTER 2025-06-05 23:29 | Emergency (ER) | payer BC ==
[~2025-06-05] VITALS: Ht 180.3 cm; Wt 141.5 kg
[~2025-06-05 23:29] MED LIST changes: +PRED10TA2 PO
[2025-06-05 23:31] VITALS: TEMP 97.5
[2025-06-06] MEDS: IPRATROPIUM 0.5 MG/ALBUTEROL 2.5 MG INH SOL UD 3 ML NEB PRN (00:26)
[2025-06-06 00:36] LABS: BASO # 0.1 10^3/uL (0.0-0.2); BASO % 0.9 % (0.0-1.0); EOS # 0.4 10^3/uL (0.0-0.5); EOS % 6.3 % (0.0-3.0); LYMPH # 0.9 10^3/uL (1.5-5.0); LYMPH % 13.2 % (24.0-44.0); MONO # 0.8 10^3/uL (0.0-0.8); MONO % 10.8 % (2.0-8.0); NEUTROPHILS # 4.8 10^3/uL (1.5-8.5); NEUTROPHILS % 68.4 % (36.0-66.0); PLATELET COUNT, AUTOMATED 232 10^3/uL (150-450)
[2025-06-06 00:51] LABS: ALT/SGPT 23 U/L (7.0-40); AST/SGOT 17 U/L (<34); CALCIUM LEVEL 8.6 MG/DL (8.3-10.6); CARBON DIOXIDE LEVEL 26 MMOL/L (20-31); CHLORIDE LEVEL 106 MMOL/L (98-107); CREATININE FOR GFR 0.78 MG/DL (0.70-1.30); GLOMERULAR FILTRATION RATE > 90.0 (>49); POTASSIUM SERUM 3.5 MMOL/L (3.5-5.1); SODIUM LEVEL 140 MMOL/L (136-145)
[2025-06-06] MEDS ORDERED: ISOVUE-370 76% 100 ML VIAL As Ordered ONE (02:41)
[2025-06-06] MEDS ORDERED: PRED10TA2 PO (03:38)
[2025-06-06 03:53] VITALS: BP 144/76; O2SAT 92
== END 2025-06-06 03:57 | disposition home or self-care (01) ==
LOC: M ED 23:29
DX: J45.909 Unspecified asthma, uncomplicated (principal); J98.11 Atelectasis; I10 Essential (primary) hypertension; G43.909 Migraine, unspecified, not intractable, without status migrainosus; G47.33 Obstructive sleep apnea (adult) (pediatric); Z87.891 Personal history of nicotine dependence; Z88.5 Allergy status to narcotic agent; Z88.8 Allergy status to other drugs, medicaments and biological substances; Z86.79 Personal history of other diseases of the circulatory system; Z79.52 Long term (current) use of systemic steroids; Z79.899 Other long term (current) drug therapy
CPT/HCPCS: 71045; 71260; 80048; 80076; 83605; 83880; 85025; 87486; 87581; 87633; 87798; 93005; 93041; 94760; 96374; 99285; J2919; Q9967

== ENCOUNTER 2025-06-28 18:22 | Observation (INO) | payer BC ==
[~2025-06-28] VITALS: Ht 180.3 cm; Wt 140.9 kg
[2025-06-28] MEDS: IPRATROPIUM 0.5 MG/ALBUTEROL 2.5 MG INH SOL UD 3 ML NEB ONE ×3 (18:50→22:40)
[2025-06-28 18:55] LABS: BASO # 0.1 10^3/uL (0.0-0.2); BASO % 0.7 % (0.0-1.0); EOS # 0.5 10^3/uL (0.0-0.5); EOS % 5.6 % (0.0-3.0); LYMPH # 1.0 10^3/uL (1.5-5.0); LYMPH % 11.1 % (24.0-44.0); MONO # 0.8 10^3/uL (0.0-0.8); MONO % 8.7 % (2.0-8.0); NEUTROPHILS # 6.9 10^3/uL (1.5-8.5); NEUTROPHILS % 73.6 % (36.0-66.0); PLATELET COUNT, AUTOMATED 256 10^3/uL (150-450)
[2025-06-28 19:17] LABS: ALT/SGPT 25 U/L (7.0-40); AST/SGOT 30 U/L (<34); CALCIUM LEVEL 9.1 MG/DL (8.3-10.6); CARBON DIOXIDE LEVEL 26 MMOL/L (20-31); CHLORIDE LEVEL 106 MMOL/L (98-107); CREATININE FOR GFR 0.86 MG/DL (0.70-1.30); GLOMERULAR FILTRATION RATE > 90.0 (>49); POTASSIUM SERUM 3.9 MMOL/L (3.5-5.1); SODIUM LEVEL 145 MMOL/L (136-145)
[2025-06-28 21:52] VITALS: O2SAT 91
[2025-06-29] VITALS (7 sets, daily range): BP systolic 135–155; BP diastolic 70–74; TEMP 98.4–99.1; O2SAT 80–94
[2025-06-29] MEDS ORDERED: ACETAMINOPHEN 325 MG TAB PO PRN (00:40)
[2025-06-29] MEDS ORDERED: IPRATROPIUM 0.5 MG/ALBUTEROL 2.5 MG INH SOL UD 3 ML NEB PRN (00:40)
[2025-06-29] MEDS: SYMBICORT 160/4.5MCG INHALER 6GM INH SCH (08:07)
[2025-06-29] MEDS: predniSONE 20 MG TAB PO SCH (08:20)
[2025-06-29] MEDS ORDERED: THERTAB52 PO (08:28)
[2025-06-29] MEDS ORDERED: HOME MED LIST COMPLETE! XX SCH (08:30)
[2025-06-29] MEDS: TAMSULOSIN 0.4 MG CAP PO SCH (09:02)
[2025-06-29] MEDS: amLODIPine 10 MG TAB PO SCH (09:02)
[2025-06-29] MEDS: OMEPRAZOLE 20MG CAP PO SCH (09:02)
[2025-06-29 09:08] LABS: BASO # 0.0 10^3/uL (0.0-0.2); BASO % 0.4 % (0.0-1.0); EOS # 0.0 10^3/uL (0.0-0.5); EOS % 0.2 % (0.0-3.0); LYMPH # 0.4 10^3/uL (1.5-5.0); LYMPH % 7.5 % (24.0-44.0); MONO # 0.2 10^3/uL (0.0-0.8); MONO % 3.4 % (2.0-8.0); NEUTROPHILS # 4.2 10^3/uL (1.5-8.5); NEUTROPHILS % 88.3 % (36.0-66.0); PLATELET COUNT, AUTOMATED 244 10^3/uL (150-450)
[2025-06-29 09:38] LABS: CALCIUM LEVEL 8.8 MG/DL (8.3-10.6); CARBON DIOXIDE LEVEL 27 MMOL/L (20-31); CHLORIDE LEVEL 102 MMOL/L (98-107); CREATININE FOR GFR 0.72 MG/DL (0.70-1.30); GLOMERULAR FILTRATION RATE > 90.0 (>49); POTASSIUM SERUM 3.8 MMOL/L (3.5-5.1); SODIUM LEVEL 140 MMOL/L (136-145)
[2025-06-29] MEDS: CHLORTHALIDONE 12.5 MG PER 1/2 TABLET PO SCH (10:06)
[2025-06-29] MEDS ORDERED: SPIR12.9 INH (11:39)
[2025-06-29] MEDS ORDERED: PRED10TA2 PO (11:39)
[2025-06-29] MEDS ORDERED: SYMB16INH INH (11:39)
[2025-06-29] MEDS ORDERED: METO1TAB32 PO (11:41)
[2025-06-29] MEDS: TIOTROPIUM BROM 2.5MCG/ACTUATION 4GM INH INH SCH (11:58)
[2025-06-29] MEDS ORDERED: IPRA0.00 NEB (12:09)
[2025-06-29] MEDS: METOPROLOL SUCC *XL* 12.5 MG PER 1/2 TAB PO SCH (12:28)
[2025-06-29] MEDS ORDERED: VALSARTAN 80MG TAB PO SCH (21:00)
== END 2025-06-29 13:31 | disposition home or self-care (01) ==
LOC: M ED 18:22 → M ED INP 18:23 → M MSPAV 06-29 02:22
PROVIDERS: ADMIT Internal Medicine; ATTEND Student in an Organized Health Care Education/Training Program
DX: R06.00 Dyspnea, unspecified (principal); J44.9 Chronic obstructive pulmonary disease, unspecified; I10 Essential (primary) hypertension; N40.0 Benign prostatic hyperplasia without lower urinary tract symptoms; F17.200 Nicotine dependence, unspecified, uncomplicated; F12.10 Cannabis abuse, uncomplicated; Z79.899 Other long term (current) drug therapy; Z79.52 Long term (current) use of systemic steroids; Z88.5 Allergy status to narcotic agent; Z88.8 Allergy status to other drugs, medicaments and biological substances
CPT/HCPCS: 36415; 71045; 71250; 80048; 80076; 84484; 85025; 87486; 87581; 87633; 87798; 93005; 94640; 94760; 96374; 99285; J2919; J7512